=== PATIENT | female | born 1965 | race Caucasian/White ===

== ENCOUNTER 2017-03-26 06:13 | Inpatient (IN) ==
[2017-03-26] MEDS ORDERED: *HR* Propofol 200 MG/20 ML VIAL IVP ONE ×2 (06:37→07:45)
[2017-03-26] MEDS ORDERED: Lidocaine -MPF 2% 2 ML VIAL ONE (06:37)
[2017-03-26] MEDS ORDERED: Ondansetron 4 MG/2 ML VIAL ONE (06:37)
[2017-03-26] MEDS ORDERED: *HR* FentaNYL (PF) 100 MCG/2 ML VIAL ONE (06:37)
[2017-03-26] MEDS ORDERED: Dexamethasone 4 MG/ML VIAL ONE ×2 (06:37→07:37)
[2017-03-26] MEDS ORDERED: Neostigmine Methylsulfate 3 MG/3 ML SYRINGE ONE (06:37)
[2017-03-26] MEDS ORDERED: *HR* Rocuronium Bromide 50 MG/5 ML VIAL ONE (06:37)
[2017-03-26] MEDS ORDERED: *HR* Succinylcholine 200 MG/10 ML VIAL IVP ONE (06:37)
[2017-03-26] MEDS ORDERED: *HR* Midazolam HCl 2 MG/2 ML VIAL ONE (06:37)
[2017-03-26] MEDS ORDERED: Lidocaine -MPF 4% 5 ML AMPUL ONE (06:37)
[2017-03-26] MEDS ORDERED: Lidocaine -MPF 1% 2 ML VIAL ID ONE (06:46)
[2017-03-26] MEDS ORDERED: Ringers Solution, Lactated 1,000 ML IVC SCH ×2 (07:00→08:00)
[2017-03-26] MEDS ORDERED: *HR* Promethazine 25 MG/ML VIAL IVP PRN (07:16)
[2017-03-26] MEDS ORDERED: Scopolamine Patch 1.5 MG PATCH.TD72 TD ONE (07:16)
[2017-03-26] MEDS ORDERED: Famotidine 20 MG/2 ML VIAL IVP ONE (07:16)
[2017-03-26] MEDS ORDERED: Metoclopramide 10 MG/2 ML VIAL IVP ONE (07:16)
[2017-03-26] MEDS ORDERED: *HR* Labetalol 20 MG/4 ML SYRINGE IVP PRN (07:16)
[2017-03-26] MEDS ORDERED: Acetaminophen IV 1,000 MG/100 ML INFUS..BTL IVPB ONE (07:18)
[2017-03-26] MEDS ORDERED: CeFAZolin Syr 2,000MG/20 ML 2,000 MG/20 ML SYRINGE IVPB ONE (07:20)
--- NOTE | 2017-03-26 07:23 | Anesthesia Evaluation PreOp ---
Date of Encounter: 03/26/17 Time of Encounter: 07:20 - Past History Planned Operation: LUKE/BSO Cardiac History: OR (2009 junie - NO stents, No CABG), Arrhythmia (Hx of AFib/WPW maintained on Cardizem. 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 Chronic Back Pain/DJD/Radiculopathy L>>R LE weakness & pain maintained on Morphine & Percocet ) Other Medical History: GERD (previously maintained on Nexium) Anesthesia History: No Prior Anesthetic Complications (Back surgery/Discectomy) , Past Anesthesia, Problems (PONV) Alcohol Use: none Drug use: none Medications and Allergies ALPRAZolam [Xanax 0.5 MG Tablet] 0.5 mg PO TID PRN 03/26/17 [History] Diltiazem HCl [Cardizem LA] 120 mg PO BID 03/26/17 [History] Morphine Sulfate [Arymo ER] 30 mg PO Q12H 03/26/17 [History] Naproxen [Naproxen] 500 mg PO BID 03/26/17 [History] OxyCODONE/APAP 5/325 [Percocet 5/325 MG] 1 each PO Q12H PRN 03/26/17 [History] PARoxetine HCl [Paroxetine HCl] 20 mg PO HS 03/26/17 [History] 3 Allergy/AdvReac Type Severity Reaction Status Date / Time codeine Allergy Itching Verified 03/26/17 07:18 Sulfa (Sulfonamide Allergy Swelling Verified 03/26/17 07:18 Antibiotics) of Lip/Tongue/Throat gabapentin AdvReac psychosis Verified 03/26/17 07:18 - Meds/Allergy Pre-op Review Medications Reviewed: Yes Allergies Reviewed: Yes Beta Blockers on Current Med List: No Anesthesia Results - Labs Laboratory Tests 03/11/17 03/11/17 12:40 12:40 WBC 10.9 Hgb 13.1 Hct 40.1 Plt Count 370 Sodium 138 Potassium 4.1 Chloride 105 Carbon Dioxide 24 BUN 14 Creatinine 0.77 Est GFR (Non-Af Amer) > 60 Anesthesia Exam O2 Sat Height 1.52 m Height 1.52 m Weight 62.142 kg Weight 62.142 kg O2 Sat by Pulse Oximetry 97 Vital Signs Temp Pulse Resp BP Pulse Ox 97.9 F 76 18 104/63 97 03/26/17 06:47 03/26/17 06:47 03/26/17 06:47 03/26/17 06:47 03/26/17 06:47 Height: 5' Weight: 137# BMI = 27 NPO (# of Hours): MNOc - HEENT Pupil (Motor): Pupils equal, EOMI Mallampati: II Teeth: Normal Oral Opening: Greater than 3 - BR[employer]CH SALES MANAGER LOC: Oriented [employer] SALES MANAGER Motor: Normal RUE, Normal LUE, Normal RLE, Normal LLE, Normal Face [employer] SALES MANAGER Sensory: Normal: RUE, LUE, RLE, LLE, Face - Cardiac Rhythm: Regular Murmur: None - Pulmonary Breath Sounds: bilateral Clear Respiratory Effort: Symmetrical Anesthesia Assess/Plan ASA Score: 3 (AFib, Lumbar Radiculopathy, WPW) Modified Sloan Scale for Level of Consciousness: Cooperative, oriented, and tranquil Anesthetic Plan: General Monitoring Plan: Standard Monitors Recovery Plan: PACU Anes Supervising Prov Stmt: Pt seen/evaluated, R&B discussed, ,questions answered and consent obtained. Vidal Hurley MD
--- NOTE | 2017-03-26 07:24 | History & Physical Report ---
Date of Encounter: 03/26/17 Time of Encounter: 07:23 24 Hour HP Update - Instructions Instructions: If the History and Physical is less than 30 days old and was completed prior to A.M. admission and or procedure and has NOT been updated on calendar day of procedure please complete this update prior to performing procedure. - Update Patient reports changes in Medical Condition: No Changes in examination, assessment, or condition: No Changes in Medication: No Preop tests/diagnostics Reviewed: Yes Surgery Remains Indicated: Yes Consent for Planned Operative Procedure(s) Verified: Yes - Pre-Operative Checklist Preoperative Checklist Indicated: Yes Prophylactic Antibiotic Ordered: Yes Home Medications Include Beta Juan David: No Beta Juan David Taken Today (Day of Surgery): No Beta Juan David Taken Yesterday (Day Prior to Surgery): No Is VTE Prophylaxis Indicated?: Yes
[2017-03-26] MEDS ORDERED: ROPIVACAINE HCL/PF 0.5% 30 ML VIAL ONE (07:34)
[2017-03-26] MEDS ORDERED: Propofol 500 MG/50 ML INFUS..BTL ONE (07:45)
[2017-03-26] MEDS ORDERED: Ondansetron 4 MG/2 ML VIAL IVP PRN (07:49)
[2017-03-26] MEDS ORDERED: Naloxone 0.4 MG/ML INJ IVP PRN (07:49)
[2017-03-26] MEDS ORDERED: *HR* OxyCODONE/APAP 5/325 TABLET PO PRN (07:49)
[2017-03-26] MEDS ORDERED: Ketamine *HR* 500 MG/10 ML MDV ONE (08:12)
[2017-03-26] MEDS ORDERED: *HR* Magnesium Sulfate 1 GM/2 ML VIAL ONE (08:13)
[2017-03-26] MEDS ORDERED: *HR* Phenylephrine 10 MG/ML VIAL ONE (08:17)
--- NOTE | 2017-03-26 08:19 | Anesthesia Procedures ---
Date of Encounter: 03/26/17 Time of Encounter: 08:05 Procedures: Anesthesia - Nerve Block Procedure Date: 03/26/17 Time: 08:05 Allergies/Adv Reactions: codeine, sulfa, gabapentin Pre-op Diagnosis: abnormal uterine bleeding Surgical Procedure: LUKE, bilateral salpingectomy, poss BSO Checklist: Correct Patient Identifier, Correct procedure, History checked Blood Thinner: No Monitor Applied: EKG, BP, Pulse Oximetry Supplemental Oxygen via Nasal Cannula (L/min): 2 (GETA) Indication: Post Op Analgesia Pre-op Neuro Deficits: No Block Type: Other (bilateral tap block) Catheter placed: No Sterile Technique: Yes Ultrasound used: Yes Anatomy identified: Yes Visual spread of Local: Yes Neuro Stimulation: No Blood on Needle Aspiration: No Smooth Injection of Local: Yes Pain with Injection of Local: No Prep: Chlorhexadine Needle: 21 x 100 mm Stimuplex (echogenic) Local: Ropivacaine (0.25% (30mL bilaterally)), Other (8mg decadron total) Volume (cc): 60mL Number of Attempts: 1 Complications: None/effective block Vitals: see anesthetic record
[2017-03-26] MEDS ORDERED: Ketorolac 30 MG/ML VIAL ONE (09:30)
[2017-03-26] MEDS ORDERED: Esmolol 100 MG/10 ML VIAL IVP ONE (09:44)
--- NOTE | 2017-03-26 10:07 | OB/GYN Procedure Note ---
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 An incision was made into the abdomen down through the subcutaneous tissue, muscular fascia and peritoneum. Once inside the abdominal cavity, the uterus was then identified and grasped on the fundus with a double-toothed tenaculum with upward traction. The right tube and ovary were surgically absent. The round ligaments on either side were identified and individually dissected and ligated with the Ligasure device. This allowed us to then create a bladder flap by both blunt and sharp dissection. The left fallopian tube and ovarian ligament were isolated through the broad ligament from the uterine body and ligated with the Ligasure device. We then skeletonized the uterine vessels on either side and carefully dissected the bladder flap anteriorly. Posteriorly, the peritoneum was dissected down towards the uterosacral ligaments. Luis Carlos clamps were then placed at each isthmic portion of the cervical body junction where the uterine arteries adjoined the uterus. These were clamped, ligated and divided using #0 Vicryl suture. The remainder of the uterus was then removed by the clamp-cut- ligation technique using #0 Vicryl on all major pedicles. We encountered dense adhesions communicating the bladder to the anterior uterine wall but we were able to take down the adhesions without difficulty. With removal of the uterus, the vaginal cuff was closed in the usual manner. Hemostasis was then inspected and secured throughout the entire area. The left ovary was left in situ. The lap sponges were then removed. The patient tolerated the operation nicely. There were no complications associated with this surgical procedure to this point. The sponge count was correct times 2 at this time. The Vasquez catheter was inspected and clear urine was noted. Having removed all instruments and packs, we then began closure of the abdomen. The fascia was closed with #0 Vicryl in a running continuous manner and the subcutaneous tissue was also closed with #2-0 Vicryl in interrupted manner. The skin was closed with #4-0 vicryl. A cystoscopy was performed which showed no stitch through the bladder and good ureteral efflux. The patient tolerated the operation nicely and was then taken to the Recovery Room in good condition.
[2017-03-26] MEDS: *HR* HYDROmorphone (PF) 1 MG/ML SYRINGE IVP PRN ×5 (10:15→16:45)
[2017-03-26] MEDS ORDERED: *HR* Meperidine 25 MG/ML SYRINGE ONE (10:28)
--- NOTE | 2017-03-26 10:56 | Anesthesia Evaluation Post Op ---
Date of Encounter: 03/26/17 Time of Encounter: 10:55 - Vital Signs Vital Signs: Selected Entries 03/26/17 10:48 Temperature 97.6 F Pulse Rate 66 Respiratory Rate 13 Blood Pressure 116/71 O2 Sat by Pulse Oximetry 97 - Lungs Lungs: Clear Ascult./Percussion - Airway Airway: Non-obstructed - Cardiovascular Regular Rate - Mental Status Mental Status: Alert & Oriented, Answers Appropriately - Pain Pain Scale: 4 Pain Scale used: Numeric (1 - 10) - Nausea Vomiting Nausea Vomiting: Not Present - Hydration Hydration: Ice chips, Vasquez catheter - Discharge PostOp Status: Transfer Patient to floor
[2017-03-26] MEDS ORDERED: ALPRAZolam 0.5 MG TABLET PO PRN (13:50)
[2017-03-26] MEDS: *HR* OxyCODONE/APAP 10/325 TABLET PO PRN (20:44)
[2017-03-26] MEDS: Ondansetron ODT 4 MG TAB.RAPDIS SL PRN (20:44)
[2017-03-26] MEDS ORDERED: Diltiazem CD (24hr) 120 MG CAPSULE PO SCH (21:00)
[2017-03-26] MEDS: Diltiazem CD (24hr) 120 MG CAPSULE PO SCH (21:01)
[2017-03-27] MEDS: Ibuprofen 600 MG TABLET PO PRN ×3 (02:17→16:52)
[2017-03-27] MEDS: *HR* OxyCODONE/APAP 10/325 TABLET PO PRN ×4 (02:18→20:35)
[2017-03-27] MEDS: Ondansetron ODT 4 MG TAB.RAPDIS SL PRN ×4 (02:19→20:35)
[2017-03-27] MEDS: ALPRAZolam 1 MG TABLET PO PRN ×2 (05:58→20:36)
[2017-03-27 06:29] LABS: Basophils % 0.1 %; Hematocrit 36.6 % (35.3-44.9); Immature Granulocytes % 0.7 % (0-4); Lymphocytes # 1.9 K/mcL (0.6-4.6); Mean Corpuscular HGB Conc 32.8 g/dL (31.6-35.5); Mean Corpuscular Hemoglobin 30.4 pg (28.0-33.3); Mean Corpuscular Volume 92.7 fL (83.0-100.0); Mean Platelet Volume 9.2 fL (9.4-12.4); Monocytes % 7.4 %; Platelet Count 463 K/mcL (140-400); Red Blood Count 3.95 M/mcL (3.82-4.97); Red Cell Distribution Width 12.6 % (11.5-14.5); Segmented Neutrophils % 84.8 %
[2017-03-27 06:48] LABS: Reactive Lymphocytes Present (Not Present)
[2017-03-27] MEDS: Simethicone 80 MG TAB.CHEW PO PRN ×3 (08:17→20:33)
[2017-03-27] MEDS: Diltiazem CD (24hr) 120 MG CAPSULE PO SCH ×2 (08:23→20:34)
--- NOTE | 2017-03-27 10:21 | Discharge Summary ---
Date of Encounter: 03/27/17 Time of Encounter: 10:18 - Discharge Diagnosis (1) Status post total abdominal hysterectomy Priority: Primary Status: Acute Comments: saw and examined patient, she is doing well, pain is under control, ambulating, tolerating liquids, adequate urine, wants to go home today - Discharge Medications Home Medications: ALPRAZolam [Xanax 0.5 MG Tablet] 0.5 mg PO TID PRN 03/26/17 [History] Diltiazem HCl [Cardizem LA] 120 mg PO BID 03/26/17 [History] Morphine Sulfate [Arymo ER] 30 mg PO Q12H 03/26/17 [History] Naproxen [Naproxen] 500 mg PO BID 03/26/17 [History] OxyCODONE/APAP 5/325 [Percocet 5/325 MG] 1 each PO Q12H PRN 03/26/17 [History] PARoxetine HCl [Paroxetine HCl] 20 mg PO HS 03/26/17 [History] Allergies/Adverse Reactions: 3 Allergy/AdvReac Type Severity Reaction Status Date / Time codeine Allergy Itching Verified 03/26/17 07:18 Sulfa (Sulfonamide Allergy Swelling Verified 03/26/17 07:18 Antibiotics) of Lip/Tongue/Throat gabapentin AdvReac psychosis Verified 03/26/17 07:18 Data Procedures and tests throughout hospitalization: Laboratory Tests 03/26/17 03/27/17 06:46 06:20 WBC 27.1 H RBC 3.95 Hgb 12.0 Hct 36.6 MCV 92.7 MCH 30.4 MCHC 32.8 RDW 12.6 Plt Count 463 H MPV 9.2 L Immature Gran % 0.7 Seg Neutrophils % 84.8 Lymphocytes % 7.0 Monocytes % 7.4 Eosinophils % 0.0 Basophils % 0.1 Neutrophils # 23.0 H Lymphocytes # 1.9 Monocytes # 2.0 H Eosinophils # 0.0 Basophils # 0.0 Reactive Lymphocytes Present A Platelet Estimate Slight increase H POC Urine HCG, Qual Negative Labs on day of discharge: Labs from last 24 hours 03/27/17 06:20 WBC 27.1 H RBC 3.95 Hgb 12.0 Hct 36.6 MCV 92.7 MCH 30.4 MCHC 32.8 RDW 12.6 Plt Count 463 H MPV 9.2 L Immature Gran % 0.7 Seg Neutrophils % 84.8 Lymphocytes % 7.0 Monocytes % 7.4 Eosinophils % 0.0 Basophils % 0.1 Neutrophils # 23.0 H Lymphocytes # 1.9 Monocytes # 2.0 H Eosinophils # 0.0 Basophils # 0.0 Reactive Lymphocytes Present A Platelet Estimate Slight increase H Date of admission: 03/26/17 11:22 Primary care physician: Neil Birmingham - Patient Status Disposition: Home, Self-Care Condition: Good Functional capacity at discharge: independent ambulation Overall status at discharge: patient is progressing back to baseline - Discharge Instructions Follow Up With: Dell Blair DO [Primary Care Provider] - Hospital Course 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
[2017-03-28] MEDS: Ibuprofen 600 MG TABLET PO PRN ×2 (00:28→08:37)
[2017-03-28] MEDS: Ondansetron ODT 4 MG TAB.RAPDIS SL PRN (03:33)
[2017-03-28] MEDS: *HR* OxyCODONE/APAP 10/325 TABLET PO PRN ×2 (03:34→09:17)
[2017-03-28 08:19] VITALS: BP 118/67
--- NOTE | 2017-03-28 08:31 | Discharge Summary ---
Date of Encounter: 03/28/17 Time of Encounter: 08:27 - Discharge Diagnosis (1) Status post total abdominal hysterectomy Priority: Primary Status: Acute Comments: patient seen and doing very well this AM, ambulating, tolerating PO well, adequate urine, ok for discharge - Discharge Medications Home Medications: ALPRAZolam [Xanax 0.5 MG Tablet] 0.5 mg PO TID PRN 03/26/17 [History] Diltiazem HCl [Cardizem LA] 120 mg PO BID 03/26/17 [History] Morphine Sulfate [Arymo ER] 30 mg PO Q12H 03/26/17 [History] Naproxen [Naproxen] 500 mg PO BID 03/26/17 [History] OxyCODONE/APAP 5/325 [Percocet 5/325 MG] 1 each PO Q12H PRN 03/26/17 [History] PARoxetine HCl [Paroxetine HCl] 20 mg PO HS 03/26/17 [History] Allergies/Adverse Reactions: 3 Allergy/AdvReac Type Severity Reaction Status Date / Time codeine Allergy Itching Verified 03/26/17 07:18 Sulfa (Sulfonamide Allergy Swelling Verified 03/26/17 07:18 Antibiotics) of Lip/Tongue/Throat gabapentin AdvReac psychosis Verified 03/26/17 07:18 Data Procedures and tests throughout hospitalization: Laboratory Tests 03/26/17 03/27/17 06:46 06:20 WBC 27.1 H RBC 3.95 Hgb 12.0 Hct 36.6 MCV 92.7 MCH 30.4 MCHC 32.8 RDW 12.6 Plt Count 463 H MPV 9.2 L Immature Gran % 0.7 Seg Neutrophils % 84.8 Lymphocytes % 7.0 Monocytes % 7.4 Eosinophils % 0.0 Basophils % 0.1 Neutrophils # 23.0 H Lymphocytes # 1.9 Monocytes # 2.0 H Eosinophils # 0.0 Basophils # 0.0 Reactive Lymphocytes Present A Platelet Estimate Slight increase H POC Urine HCG, Qual Negative Date of admission: 03/26/17 11:22 Primary care physician: Neil Birmingham - Patient Status Disposition: Home, Self-Care Condition: Good Overall status at discharge: patient is progressing back to baseline - Discharge Instructions Follow Up With: Dell Blair DO [Primary Care Provider] - Hospital Course 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 Time Attestation: Total time spent providing and/or coordinating discharge services: Exam - Constitutional Vitals: Temp Pulse Resp BP Pulse Ox 98.2 F 83 16 118/67 95 03/28/17 03:35 03/28/17 08:17 03/28/17 08:17 03/28/17 08:17 03/28/17 03:35 General appearance IM: A&O X 3 - Respiratory Respiratory exam: Present: CTAB - Cardiovascular Cardiovascular exam IM: Present: RRR - GI/Abdominal GI/Abdominal exam IM: normal bowel sounds Incision: normal, dry, intact - Extremities Exam Extremities exam IM: Present: normal inspection - VTE Documentation of Mechanical Device: Graduated compression elastic hosiery
[2017-03-28] MEDS: Simethicone 80 MG TAB.CHEW PO PRN (08:37)
== END 2017-03-28 09:23 | disposition home or self-care (01) | DRG 513 ==
LOC: SAMDAY 06:13 → 1NENUOBS 11:22
PROVIDERS: ADMIT Student in an Organized Health Care Education/Training Program; ATTEND Student in an Organized Health Care Education/Training Program